=== PATIENT | male | born 1970 | race Caucasian/White ===

== ENCOUNTER 2020-07-18 07:30 | Emergency (ER) | payer OTHER ==
[~2020-07-18] VITALS: Ht 182.9 cm; Wt 79.4 kg
--- NOTE | 2020-07-19 19:13 | EKG ---
[facility] [address] [facility] [place] [address] Signed Sinus tachycardia Left anterior fascicular block Cannot rule out Anterior infarct , age undetermined T wave abnormality, consider lateral ischemia Abnormal ECG No previous ECGs available Confirmed by GRACIE BRAY MD ([id number] on 07/19/2020 7:12:57 PM Electronically Signed By: GRACIE BRAY MD 07/19/201912 PATIENT NAME: BARRYSTACEY Electrocardiogram DATE OF : 72 PHYSICIAN: GRACIE BRAY MD REPORT #: [id number] REPORT IS CONFIDENTIAL AND NOT TO BE RELEASED WITHOUT AUTHORIZATION
== END 2020-07-18 11:07 | disposition home or self-care (01) ==
LOC: ED 07:30
DX: F15.10 Other stimulant abuse, uncomplicated (principal); R79.1 Abnormal coagulation profile; F17.200 Nicotine dependence, unspecified, uncomplicated
CPT/HCPCS: 80053; 84484; 85025; 93005; 93010; 96374; 96376; 99285-25; J2060; J7030